=== PATIENT | male | born 1935 | race Caucasian/White ===

== ENCOUNTER 2017-02-12 19:56 | Observation (INO) | payer OTHER, BC ==
[~2017-02-12] VITALS: Ht 182.9 cm; Wt 83.3 kg
[~2017-02-12 19:56] MED LIST: CMD/25 PO; CYAN1LOZ; GARL705C PO; MULTTAB58 PO; OMEG10007 PO; PROP1TAB PO; PYRI50TA77 PO; SIMV20TA2 PO; notes PO
[2017-02-12 20:32] LABS: BASO % 0.1 %; BASO ABS # 0.02 K/uL (0-0.2); COMPLETE YES; EOS % 1.1 %; HEMATOCRIT 42.8 % (42-52); IG% 0.2 %; LYMPH % 8.3 %; LYMPH ABS # 1.14 K/uL (1.2-3.4); MEAN CORPUSCULAR HEMOGLOBIN 33.6 pg (25-34); MEAN CORPUSCULAR HGB CONC 33.6 g/dl (32-36); MEAN PLATELET VOLUME 10.7 fL (7.4-10.4); MONO % 8.6 %; NEUT % 81.7 %; PLATELET COUNT 153 K/uL (130-400); RED BLOOD COUNT 4.28 M/uL (4.7-6.1)
[2017-02-12 20:52] LABS: ALT/SGPT 17 U/L (12-78); AST/SGOT 13 U/L (15-37); BLOOD UREA NITROGEN 19 mg/dl (7-18); BUN/CREATININE RATIO 16.2 (10-20); CALCIUM 8.9 mg/dl (8.5-10.1); CARBON DIOXIDE 29 mmol/L (21-32); CHLORIDE 104 mmol/L (98-107); GLUCOSE 98 mg/dl (70-99); POTASSIUM 4.5 mmol/L (3.5-5.1); SODIUM 137 mmol/L (136-145)
[2017-02-12 20:55] LABS: ALB/GLOB RATIO 1.1 (0.9-2); ALKALINE PHOSPHATASE 57 U/L (45-117)
--- NOTE | 2017-02-12 21:23 | EMERGENCY ROOM VISIT NOTE ---
History Report prepared by [place]: Sal Ross Under the Supervision of: Dr. Femi Davila M.D. First contact with patient: 21:11 Chief Complaint: ABDOMINAL PAIN Stated Complaint: STOMACH DISCOMFORT, FLU-LIKE, FEVER (101) Nursing Triage Summary: patient c/o upper abdominal discomfort since yesterday described as tenderness. patient states he was seen today at [facility] and was told to come to ED. History of Present Illness The patient is an 82 year old male with a heart attack history who presents to the Emergency Room with complaints of persistent abdominal pain that started yesterday. He says that he was seen at [facility] a couple hours ago, and had an x-ray done, with concern for questionable free air. The patient was then sent here for further evaluation. He says that his abdominal pain "feels like a brick". The patient's adds that the patient had a fever of 101 this morning. The patient denies any nausea, vomiting, chest pain, shortness of breath, or hematochezia. The patient is on baby aspirin, but no other blood thinners. Source of History: patient, spouse/significant other Onset: Yesterday evening Position: abdomen Symptom Intensity: feels like a brick Timing: other (persistent) Associated Symptoms: + fevers, No chest pain, No SOB, No nausea, No vomiting , No hematochezia Note: No other associated symptoms noted. Review of Systems See HPI for pertinent positives & negatives. A total of 10 systems reviewed and were otherwise negative. Past Medical & Surgical Medical Problems: (1) Calculus of kidney and ureter (2) Essential tremor (3) History of cataract extraction (4) History of malignant basal cell neoplasm of skin (5) History of squamous cell carcinoma of skin (6) History TIA's (7) Status post hand surgery (8) Stomach ulcer Old medical records were reviewed. Nurse's notes were reviewed and I agree with. Family History Family history omitted secondary to patient's advanced age. Social History Smoking Status: Never Smoker Marital Status: Housing Status: lives with significant other Occupation Status: retired Current/Historical Medications Scheduled Aspirin (Aspirin Ec), 81 MG PO DAILY Atorvastatin (Lipitor), 40 MG PO DAILY Coenzyme Q10 (Ubidecarenone) (Coq-10), 100 MG PO DAILY Epinephrine (Epipen), 0.3 MG IM UD Fish Oil ([place]-3), 1,000 MG PO DAILY Multiple Vitamin (Multivitamin), 1 TAB PO DAILY Propranolol La (Inderal La), 60 MG PO DAILY Pyridoxine Hcl (Vitamin B 6), 0.5 TAB PO BID Allergies Coded Allergies: Bee Venom (Verified Allergy, Severe, ANAPHYLAXIS, 02/12/17) Gabapentin (Verified Allergy, Intermediate, DIZZY, UNSTEADY, 02/12/17) Codeine (Verified Allergy, Unknown, ANAPHYLAXIS, 02/12/17) Clindamycin (Verified Adverse Reaction, Intermediate, BLOOD IN STOOL, 02/12) Uncoded Allergies: LISIN (Adverse Reaction, Intermediate, COUGH, 02/12/17) Physical Exam Vital Signs Date Time Temp Pulse Resp B/P (MAP) Pulse Ox O2 Delivery O2 Flow Rate FiO2 02/13/17 00:30 60 20 112/60 97 Room Air 02/12/17 23:46 67 20 106/52 97 Room Air 02/12/17 23:07 66 02/12/17 22:05 64 20 113/55 95 Room Air 02/12/17 22:04 113/55 02/12/17 21:26 66 22 93 02/12/17 20:56 65 21 95 02/12/17 20:19 107/59 02/12/17 20:04 37.4 62 20 119/59 98 Room Air Physical Exam General: Well developed well nourished non ill appearing older male in no acute distress, breathing comfortably on room air. Normal speech HEENT: Normal cephalic atraumatic. Pupils are equal round and reactive to light. Extraocular movements are intact. Oropharynx is pink with moist mucous membranes and no lesions at present. No swelling of the mouth lips or tongue. Neck: Supple with a midline trachea. No meningeal signs or stiffness, no JVD or bruits. No Stridor. Chest: Clear to auscultation bilaterally. No wheezes or rhonchi. No increased work of breathing. Heart: regular rate and rhythm. Abdomen: Mild tenderness in epigastric area, he is also tender moderately on the right side of the abdomen and midabdomen. No peritonitis. Soft, nondistended without rebound guarding or rigidity. Extremities: No cyanosis clubbing or edema. No calf tenderness or assymetry Spine/Back. Non tender to palpation. No CVA tenderness Skin: Good turgor without rashes. Neurologic exam: Cranial nerves two through 12 are intact. Motor and sensation are intact and symmetrical throughout. Medical Decision & Procedures ER Provider Diagnostic Interpretation: Radiology results as stated below per my review and radiologist interpretation: CHEST ONE VIEW PORTABLE CLINICAL HISTORY: Chest pain. Fever. COMPARISON STUDY: Chest radiograph January 18, 2013. FINDINGS: There are median sternotomy wires and clips from bypass grafting. Cardiomediastinal silhouette is stable. There is no evidence of pulmonary edema. No consolidation is identified to suggest pneumonia. IMPRESSION: No acute cardiopulmonary findings. Electronically signed by: Brenton Avila M.D. 02/12/2017 10:19 PM Dictated Date/Time: 02/12/2017 10:[address] OF THE ABDOMEN AND PELVIS WITHOUT CONTRAST CLINICAL HISTORY: Abdominal pain. Fever. COMPARISON STUDY: No previous studies for comparison. TECHNIQUE: Axial images of the abdomen and pelvis were obtained without IV contrast. Images were reviewed in the axial, sagittal, and coronal planes. A dose lowering technique was utilized adhering to the principles of ALARA. FINDINGS: A 2.3 cm segment 4 hepatic lesion is suboptimally assessed on this unenhanced exam but measures water attenuation likely reflects a cyst. A 3.5 cm water attenuation lesion arising from the upper pole of the left kidney is suboptimally assessed on this unenhanced exam but measures water attenuation likely reflects a cyst. There are bilateral parapelvic cysts. The spleen, adrenal glands and pancreas are unremarkable on this unenhanced examination. There is no evidence for a bowel obstruction. The appendiceal tip is dilated, measuring 1 cm. There is moderate periappendiceal infiltration. A few appendicoliths are present. There is no free air or abscess. There is wall thickening of the base of the cecum. The prostate is moderately enlarged. There is no lymphadenopathy. There are no suspicious osseous lesions. IMPRESSION: Findings consistent with acute appendicitis. Moderate periappendiceal infiltration and several appendicoliths. No free air or abscess. Moderate wall thickening of the base of the cecum is likely related to acute appendicitis. A mucosal lesion is considered less likely although correlation at time of surgery is recommended. Electronically signed by: Brenton Avial M.D. 02/12/2017 10:32 PM Dictated Date/Time: 02/12/2017 10:24 PM Laboratory Results 02/12/17 20:26 Red Blood Count 4.28, Mean Corpuscular Volume 100.0, Mean Corpuscular Hemoglobin 33.6, Mean Corpuscular Hemoglobin Concent 33.6, Mean Platelet Volume 10.7, Neutrophils (%) (Auto) 81.7, Lymphocytes (%) (Auto) 8.3, Monocytes (%) ( Auto) 8.6, Eosinophils (%) (Auto) 1.1, Basophils (%) (Auto) 0.1, Neutrophils # ( Auto) 11.27, Lymphocytes # (Auto) 1.14, Monocytes # (Auto) 1.19, Eosinophils # ( Auto) 0.15, Basophils # (Auto) 0.02 02/12/17 20:26 Test 02/12/17 20:26 02/12/17 22:00 White Blood Count 13.80 K/uL (4.8-10.8) Red Blood Count 4.28 M/uL (4.7-6.1) Hemoglobin 14.4 g/dL (14.0-18.0) Hematocrit 42.8 % (42-52) Mean Corpuscular Volume 100.0 fL (80-100) Mean Corpuscular Hemoglobin 33.6 pg (25-34) Mean Corpuscular Hemoglobin Concent 33.6 g/dl (32-36) Platelet Count 153 K/uL (130-400) Mean Platelet Volume 10.7 fL (7.4-10.4) Neutrophils (%) (Auto) 81.7 % Lymphocytes (%) (Auto) 8.3 % Monocytes (%) (Auto) 8.6 % Eosinophils (%) (Auto) 1.1 % Basophils (%) (Auto) 0.1 % Neutrophils # (Auto) 11.27 K/uL (1.4-6.5) Lymphocytes # (Auto) 1.14 K/uL (1.2-3.4) Monocytes # (Auto) 1.19 K/uL (0.11-0.59) Eosinophils # (Auto) 0.15 K/uL (0-0.5) Basophils # (Auto) 0.02 K/uL (0-0.2) RDW Standard Deviation 45.8 fL (36.4-46.3) RDW Coefficient of Variation 12.7 % (11.5-14.5) Immature Granulocyte % (Auto) 0.2 % Immature Granulocyte # (Auto) 0.03 K/uL (0.00-0.02) Anion Gap 4.0 mmol/L (3-11) Est Creatinine Clear Calc Drug Dose 50.3 ml/min Estimated GFR () 64.0 Estimated GFR (Non- 55.2 BUN/Creatinine Ratio 16.2 (10-20) Calcium Level 8.9 mg/dl (8.5-10.1) Total Bilirubin 0.8 mg/dl (0.2-1) Aspartate Amino Transf (AST/SGOT) 13 U/L (15-37) Alanine Aminotransferase (ALT/SGPT) 17 U/L (12-78) Alkaline Phosphatase 57 U/L (45-117) Troponin I < 0.015 ng/ml (0-0.045) Total Protein 7.0 gm/dl (6.4-8.2) Albumin 3.6 gm/dl (3.4-5.0) Globulin 3.4 gm/dl (2.5-4.0) Albumin/Globulin Ratio 1.1 (0.9-2) Lipase 87 U/L (73-393) Urine Color YELLOW Urine Appearance CLEAR (CLEAR) Urine pH 6.0 (4.5-7.5) Urine Specific [place] 1.016 (1.000-1.030) Urine Protein NEG (NEG) Urine Glucose (UA) NEG (NEG) Urine Ketones 1+ (NEG) Urine Occult Blood NEG (NEG) Urine Nitrite NEG (NEG) Urine Bilirubin NEG (NEG) Urine Urobilinogen NEG (NEG) Urine Leukocyte Esterase NEG (NEG) Laboratory studies as stated above per my review. Medications Administered Medications (Trade) Dose Ordered Sig/Kade Route Start Time Stop Time Status Last Admin Dose Admin Sodium Chloride 250 ml @ 999 mls/hr Q16M STAT IV 02/12/17 21:27 02/12/17 21:42 DC 02/12/17 22:08 999 MLS/HR Sodium Chloride 1,000 ml @ 100 mls/hr Q10H STAT IV 02/12/17 21:27 02/13/17 07:26 02/12/17 22:08 100 MLS/HR Cefoxitin Sodium (Mefoxin 2000mg/ 60 ml D5W) 2,000 mg NOW STAT IV 02/12/17 23:46 02/12/17 23:47 DC 02/12/17 23:46 2,000 MG ECG Indication: abdominal pain Rate (beats per minute): 63 Rhythm: normal sinus Findings: Q waves (old inferior), RBBB Comparison ECG Date: compared to January 18 2013, RBBB now present ED Course 2117: Past medical records reviewed. The patient was evaluated in room C4, and a complete history and physical examination were performed. 2126: Ordered NSS 1000 ml @ 100 mls/hr IV, NSS 250 ml @ 999 mls/hr IV. 2229: I reevaluated the patient and he appears comfortable. 2334: I reevaluated the patient and he is resting. The patient verbally expressed understanding and agreement of the treatment plan. The patient will be brought to the operating room. 4: I discussed the patient with Dr. Chilo Gonzalez general surgery - she will take the patient to the operating room. 2346: Ordered Mefoxin 2000 mg/60 ml D5W 2000 mg IV. Medical Decision Differentials include, but are not limited to; free air, infection, colitis, peptic ulcer disease, viral illness, electrolyte or metabolic abnormality. This patient comes in as described above. He is benign fever or abdominal pain since yesterday. He was seen at the urgent care center and they thought he could have free air and sent him over here. He has tenderness epigastric area in the right side of the abdomen but no definite peritonitis. A chest x-ray was obtained and shows no free air or acute abnormality. IV access established was kept nothing by mouth and hydrated with IV normal saline. He appears very comfortable. I did CAT scan of his abdomen and there are findings are likely consistent with a acute appendicitis. In light of this, I did consult Dr. Woo the on-call surgeon. The patient also has an elevated white count. She is going to take him to the operating room. I did order Mefoxin 2 g IV. She will see him and taken to the operating room for an appendectomy.- Medication Reconcilliation Current Medication List: was personally reviewed by me Blood Pressure Screening Patient's blood pressure: Normal blood pressure Consults Time Called: 2339 Consulting Physician: Dr. Chilo Gonzalez general surgery Returned Call: [phone] I discussed the patient with Dr. Chilo Gonzalez general surgery - she will take the patient to the operating room. Impression Primary Impression: Acute appendicitis Additional Impression: Right sided abdominal pain Scribe Attestation The scribe's documentation has been prepared under my direction and personally reviewed by me in its entirety. I confirm that the note above accurately reflects all work, treatment, procedures, and medical decision making performed by me. Departure Information Dispostion Being Evaluated By Hospitalist (to operating room) Referrals Deon Spann MD (PCP) Patient Instructions My [facility] Problem Qualifiers Primary Impression: Acute appendicitis Acute appendicitis type: unspecified acute appendicitis type Qualified Codes : K35.80 - Unspecified acute appendicitis
[2017-02-12] MEDS ORDERED: SODIUM CHLORIDE 0.9% 1000ML 250 ML IV STA (21:27)
[2017-02-12] MEDS ORDERED: SODIUM CHLORIDE 0.9% 1000ML 1,000 ML IV STA (21:27)
[2017-02-12] MEDS ORDERED: EPP3/2 IM (21:39)
[2017-02-12] MEDS ORDERED: PROP60CA5 PO (21:39)
[2017-02-12] MEDS ORDERED: COEN100C11 PO (21:39)
[2017-02-12] MEDS ORDERED: ATOR-24 PO (21:39)
[2017-02-12] MEDS ORDERED: ASPI81TA28 PO (21:39)
--- NOTE | 2017-02-12 22:20 | DIAGNOSTIC IMAGING REPORT ---
CHEST ONE VIEW PORTABLE CLINICAL HISTORY: Chest pain. Fever. COMPARISON STUDY: Chest radiograph January 18, 2013. FINDINGS: There are median sternotomy wires and clips from bypass grafting. Cardiomediastinal silhouette is stable. There is no evidence of pulmonary edema. No consolidation is identified to suggest pneumonia. IMPRESSION: No acute cardiopulmonary findings. Electronically signed by: Brenton Avila M.D. 02/12/2017 10:19 PM Dictated Date/Time: 02/12/2017 10:18 PM
--- NOTE | 2017-02-12 22:33 | DIAGNOSTIC IMAGING REPORT ---
CT OF THE ABDOMEN AND PELVIS WITHOUT CONTRAST CLINICAL HISTORY: Abdominal pain. Fever. COMPARISON STUDY: No previous studies for comparison. TECHNIQUE: Axial images of the abdomen and pelvis were obtained without IV contrast. Images were reviewed in the axial, sagittal, and coronal planes. A dose lowering technique was utilized adhering to the principles of ALARA. FINDINGS: A 2.3 cm segment 4 hepatic lesion is suboptimally assessed on this unenhanced exam but measures water attenuation likely reflects a cyst. A 3.5 cm water attenuation lesion arising from the upper pole of the left kidney is suboptimally assessed on this unenhanced exam but measures water attenuation likely reflects a cyst. There are bilateral parapelvic cysts. The spleen, adrenal glands and pancreas are unremarkable on this unenhanced examination. There is no evidence for a bowel obstruction. The appendiceal tip is dilated, measuring 1 cm. There is moderate periappendiceal infiltration. A few appendicoliths are present. There is no free air or abscess. There is wall thickening of the base of the cecum. The prostate is moderately enlarged. There is no lymphadenopathy. There are no suspicious osseous lesions. IMPRESSION: Findings consistent with acute appendicitis. Moderate periappendiceal infiltration and several appendicoliths. No free air or abscess. Moderate wall thickening of the base of the cecum is likely related to acute appendicitis. A mucosal lesion is considered less likely although correlation at time of surgery is recommended. Electronically signed by: Brenton Avila M.D. 02/12/2017 10:32 PM Dictated Date/Time: 02/12/2017 10:24 PM
[2017-02-12 22:34] LABS: URINE APPEARANCE CLEAR (CLEAR); URINE BILIRUBIN NEG (NEG); URINE COLOR YELLOW; URINE NITRITE NEG (NEG); URINE SPECIFIC GRAVITY 1.016 (1.000-1.030); UROBILINOGEN NEG (NEG); ZZUR CULT IF INDIC CLEAN CATCH NO
[2017-02-12 22:42] LABS: MANUAL MICROSCOPIC REQUIRED? NO; REVIEW REQ? NO
[2017-02-12] MEDS ORDERED: CEFOXITIN 2000MG/60 ML D5W IV STA (23:46)
[2017-02-13] VITALS (13 sets, daily range): BP systolic 100–136; BP diastolic 45–84; PULSE 58–158; TEMP 36.3–37.4; O2SAT 91–98; Ht 182.9 cm; Wt 83.3 kg
[2017-02-13] MEDS ORDERED: BUPIVACAINE 0.5 % 5 MG/1 ML MPF 30ML VIAL ONE (00:25)
[2017-02-13] MEDS ORDERED: ROCURONIUM BROMIDE 10 MG/ML 5 ML VIAL ONE (00:31)
[2017-02-13] MEDS ORDERED: PROPOFOL IV EMULSION 10 MG/ML 20 ML VIAL IV ONE (00:31)
[2017-02-13] MEDS ORDERED: SUCCINYLCHOLINE CHLORIDE 20 MG/ML 10 ML VIAL IV ONE (00:31)
[2017-02-13] MEDS ORDERED: ONDANSETRON INJ 2 MG/ML 2 ML VIAL ONE (00:32)
[2017-02-13] MEDS ORDERED: FENTANYL CITRATE INJ 50 MCG/1 ML 2 ML VIAL ONE (00:32)
[2017-02-13] MEDS ORDERED: LIDOCAINE HCL 2% 2 ML VIAL (20MG/ML) ONE (00:32)
--- NOTE | 2017-02-13 00:35 | Pre-Operative Consultation ---
History General Date of Service: Feb 13, 2017. Stated Complaint: diffuse abdominal pain HPI HPI: The patient is a 82 year old male being seen at the request of Dr. Davila for acute appendicitis. He presents to the ER complaining of abdominal pain of 1 days duration. Generalized throughout his abdomen, constant, achy, 5/10 in severity, worse with movement, better if he lays still with his legs bent. Fever to 101 earlier today. No nausea or vomiting. No change in bowel habits. No similar symptoms in the past. No localization or radiation to the right side. No prior colonoscopy but no family history of colon cancer. Historian: patient, spouse Anticipated Procedure: laparoscopic appendectomy Procedure Urgency: Emergency Risk Assessment Pre-Op Conditions: + cerebrovascular disease (h/o TIAs in the past), + other (h /o CAD s/p CABG) Daily beta doug use?: Yes Beta Doug Details Indication Beta Doug use: coronary heart disease, tremor Problem List Medical Problems: (1) Acute appendicitis Status: Acute (2) Right sided abdominal pain Status: Acute Medical & Surgical History Past Medical History: coronary artery disease, other (h/o TIA, tremor) Past Surgical History: coronary bypass surgery (3-4 yrs ago, followed by Dr Josue), other (hand surgery, skin cancer removals) Family History Family History: no pertinent family hx Social History Hx Tobacco Use In Past Year?: No Smoking Status: Never Smoker Marital status: Housing status: lives with family Occupation status: retired Immunizations Have You Had Influenza Vaccine: Yes Have You Had Tetanus Vaccine: Unknown History of Pneumococcal: Yes Date of Pneumococcal Vaccine: Mar 04, 2013 History Hepatitis B Vaccine: Unknown Allergies Allergies: Coded Allergies: Bee Venom (Verified Allergy, Severe, ANAPHYLAXIS, 02/12/17) Gabapentin (Verified Allergy, Intermediate, DIZZY, UNSTEADY, 02/12/17) Codeine (Verified Allergy, Unknown, ANAPHYLAXIS, 02/12/17) Clindamycin (Verified Adverse Reaction, Intermediate, BLOOD IN STOOL, 02/12) Uncoded Allergies: LISIN (Adverse Reaction, Intermediate, COUGH, 02/12/17) Medications Current Inpatient Medications Current Inpatient Medications Medications (Trade) Dose Ordered Sig/Kade Route Start Time Stop Time Status Last Admin Dose Admin Sodium Chloride 1,000 ml @ 100 mls/hr Q10H STAT IV 02/12/17 21:27 02/13/17 07:26 02/12/17 22:08 100 MLS/HR Review of Systems Review of Systems Constitutional: fever Eyes: reports: no symptoms ENT: reports: no symptoms reported Cardiovascular: reports: no symptoms reported, other (able to walk 2 hrs without problems since bypass grafting) Respiratory: reports: no symptoms reported Gastrointestinal: see HPI Genitourinary - Male: reports: no symptoms Musculoskeletal: no symptoms reported Integumentary: no symptoms reported Neurologic: reports: no symptoms Psychiatric: reports: no symptoms Endocrine: no symptoms Hematologic / Lymphatic: other (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) Allergic / Immunologic: no symptoms Physical Exam Physical Exam General Appearance: + WD/WN, No distress Ears, Nose, Throat: + normal ENT inspection Neck: No abnormal inspection, No limited range of motion Respiratory: No accessory muscle use, No abnormal breath sounds, No decreased breath sounds, No respiratory distress Cardiovascular: + systolic murmur, No abnormal peripheral pulse, No JVD, No abnormal rate, No edema Abdomen: + tenderness (right mid abdomen), No abnormal bowel sounds, No distension, No hernia, No organomegaly, No guarding Extremities: No edema, No slow capillary refill Neurologic/Psychiatric: + other (tremor), No abnormal broomcorn thresher II-XII, No decreased LOC Skin Characteristics: No abnormal color, No cyanosis Diagnostics Labs Labs Results Past 24 Hours Test 02/12/17 20:26 02/12/17 22:00 Range/Units White Blood Count 13.80 4.8-10.8 K/uL Red Blood Count 4.28 4.7-6.1 M/uL Hemoglobin 14.4 14.0-18.0 g/dL Hematocrit 42.8 42-52 % Mean Corpuscular Volume 100.0 80-100 fL Mean Corpuscular Hemoglobin 33.6 25-34 pg Mean Corpuscular Hemoglobin Concent 33.6 32-36 g/dl Platelet Count 153 130-400 K/uL Mean Platelet Volume 10.7 7.4-10.4 fL Neutrophils (%) (Auto) 81.7 % Lymphocytes (%) (Auto) 8.3 % Monocytes (%) (Auto) 8.6 % Eosinophils (%) (Auto) 1.1 % Basophils (%) (Auto) 0.1 % Neutrophils # (Auto) 11.27 1.4-6.5 K/uL Lymphocytes # (Auto) 1.14 1.2-3.4 K/uL Monocytes # (Auto) 1.19 0.11-0.59 K/uL Eosinophils # (Auto) 0.15 0-0.5 K/uL Basophils # (Auto) 0.02 0-0.2 K/uL RDW Standard Deviation 45.8 36.4-46.3 fL RDW Coefficient of Variation 12.7 11.5-14.5 % Immature Granulocyte % (Auto) 0.2 % Immature Granulocyte # (Auto) 0.03 0.00-0.02 K/uL Sodium Level 137 136-145 mmol/L Potassium Level 4.5 3.5-5.1 mmol/L Chloride Level 104 98-107 mmol/L Carbon Dioxide Level 29 21-32 mmol/L Anion Gap 4.0 3-11 mmol/L Blood Urea Nitrogen 19 7-18 mg/dl Creatinine 1.20 0.60-1.40 mg/dl Est Creatinine Clear Calc Drug Dose 50.3 ml/min Estimated GFR () 64.0 Estimated GFR (Non- 55.2 BUN/Creatinine Ratio 16.2 10-20 Random Glucose 98 70-99 mg/dl Calcium Level 8.9 8.5-10.1 mg/dl Total Bilirubin 0.8 0.2-1 mg/dl Aspartate Amino Transf (AST/SGOT) 13 15-37 U/L Alanine Aminotransferase (ALT/SGPT) 17 12-78 U/L Alkaline Phosphatase 57 45-117 U/L Troponin I < 0.015 0-0.045 ng/ml Total Protein 7.0 6.4-8.2 gm/dl Albumin 3.6 3.4-5.0 gm/dl Globulin 3.4 2.5-4.0 gm/dl Albumin/Globulin Ratio 1.1 0.9-2 Lipase 87 73-393 U/L Urine Color YELLOW Urine Appearance CLEAR CLEAR Urine pH 6.0 4.5-7.5 Urine Specific [place] 1.016 1.000-1.030 Urine Protein NEG NEG Urine Glucose (UA) NEG NEG Urine Ketones 1+ NEG Urine Occult Blood NEG NEG Urine Nitrite NEG NEG Urine Bilirubin NEG NEG Urine Urobilinogen NEG NEG Urine Leukocyte Esterase NEG NEG Lab Interpretation Lab Interpretation: labs were reviewed Diagnostic Radiology Diagnostic Radiology CT scan shows dilated appendix with appendicoliths and periappendiceal inflammation extending to base of cecum Impression Assessment and Plan Assessment and Plan 82 yr old man with acute appendicitis. Discussed laparoscopic appendectomy with risks of bleeding, infection, postop abscess or ileus. Also discussed the potential need for a larger procedure if the base of the cecum is involved or malignancy seen/ suspected intraoperatively. Explained ileocectomy with longer hospital stay, 4-6 wk recovery, possible loose stools due to loss of the ileocecal valve. All questions answered. Will go to OR tonight. Consent signed.
[2017-02-13] MEDS ORDERED: ATROPINE SULFATE 0.1 MG/ML 5ML SYR IV PRN (00:45)
[2017-02-13] MEDS ORDERED: HYDROmorphone INJ 2 MG/ML SYR/VIAL IV PRN (00:45)
[2017-02-13] MEDS ORDERED: ONDANSETRON INJ 2 MG/ML 2 ML VIAL IV PRN ×2 (00:45→02:30)
[2017-02-13] MEDS ORDERED: EpHEDrine SULFATE INJ 50 MG/ML AMP IV PRN (00:45)
[2017-02-13] MEDS ORDERED: PHENYLEPHRINE 100MCG/ML 5ML SYR IV PRN (00:45)
[2017-02-13] MEDS ORDERED: GLYCOPYRROLATE INJ 0.2 MG/ML VIAL ONE (01:52)
[2017-02-13] MEDS ORDERED: NEOSTIGMINE METHYLSULFATE 5 MG/5 ML SYR ONE (01:52)
--- NOTE | 2017-02-13 02:14 | [facility] Post Operative Brief Note ---
Immediate Operative Summary Operative Date Feb 13, 2017. Pre-Operative Diagnosis Acute appendicitis Post-Operative Diagnosis Same as preoperative diagnosis Procedure(s) Performed Laparoscopic Appendectomy Surgeon Dr. Malorie Woo [employer] Adviser Surgeon(s) None Estimated Blood Loss 5 mL Findings appendix curled on itself and adherent to cecum. Base of appendix clear of inflammation Specimens Permanent specimens A: Appendix Drains none Anesthesia GET Complication(s) None Disposition Recovery Room / PACU
--- NOTE | 2017-02-13 02:20 | [facility] Operative Report ---
Operative Report Operative Date Feb 13, 2017. Pre-Operative Diagnosis Acute appendicitis Post-Operative Diagnosis Same as preoperative diagnosis Procedure(s) Performed Laparoscopic Appendectomy Surgeon Dr. Malorie Woo Supervisor [employer] Surgeon(s) None Estimated Blood Loss 5 mL Findings base of appendix clear of inflammation, appendix curled on itself and adherent to cecum Specimens Permanent specimens A: Appendix Drains none Anesthesia GET Complication(s) None Disposition Recovery Room / PACU Indications 82 yr old man who presented with generalized abdominal pain, fever and CT scan findings c/w acute appendicitis. Consented for laparoscopic appendectomy. Description of Procedure The patient received cefoxitin preoperatively. After the induction of GET, he was positioned with his left arm tucked. He had placement of SCD's. His abdomen was clipped and then steriley prepped and draped. He was positioned in trendelenburg. A supraumblilical incision was made and a veress needle placed into the peritoneal cavity. This was tested with the saline drop test. Initial pressure was 1 mmHg and this was taken to 15 mmHg. A 12 mm trocar was placed. Two 5 mm trocars were placed under direct vision in the left lower quadrant and midline pubic area. The appendix was seen adherent to the cecum with significant inflammatory peel. This was dissected free and the base of the appendix was noted to be free of inflammation. A window was created here and the base of the appendix divided off of the cecum with the purple load stapler. The thickened appendiceal mesentery was taken with two sequential loads of the 45 mm wilhelm stapler. The appendix was placed in an endobag and removed through the umbilical incision. The abdomen was irrigated and suctioned clear. Hemostasis was noted to be present. The trocars were removed and pneumoperitoneum released. The fascia of the umbilical incision was closed with interrupted 3-0 vicryl suture. The skin was closed with subcuticular 4-0 vicryl suture. 30 cc of 0.5% marcaine had been used for local anesthesia. Steri strips and sterile dressings were applied. He was awakened and taken to recovery in stable condition. I attest to the content of the Intraoperative Record and any orders documented therein. Any exceptions are noted below.
--- NOTE | 2017-02-13 02:23 | Anesthesiology Progress Note ---
Anesthesia Post Op Note Date & Time Feb 13, 2017 at 02:22 Vital Signs Pain Intensity: 4.0 Vital Signs Past 12 Hours Date Time Temp Pulse Resp B/P (MAP) Pulse Ox O2 Delivery O2 Flow Rate FiO2 02/13/17 02:15 36.4 64 20 147/66 (82) 99 Oxymask 10 02/13/17 00:30 60 20 112/60 97 Room Air 02/12/17 23:46 67 20 106/52 97 Room Air 02/12/17 23:07 66 02/12/17 22:05 64 20 113/55 95 Room Air 02/12/17 22:04 113/55 02/12/17 21:26 66 22 93 02/12/17 20:56 65 21 95 02/12/17 20:19 107/59 02/12/17 20:04 37.4 62 20 119/59 98 Room Air Notes Mental Status: alert / awake / arousable, participated in evaluation Pt Amnestic to Procedure: Yes Nausea / Vomiting: adequately controlled Pain: adequately controlled Airway Patency, RR, SpO2: stable & adequate BP & HR: stable & adequate Hydration State: stable & adequate Anesthetic Complications: no major complications apparent
[2017-02-13] MEDS ORDERED: OXYC-57 PO (02:24)
[2017-02-13] MEDS ORDERED: AMOX875T PO (02:24)
--- NOTE | 2017-02-13 02:26 | Discharge Instructions ---
Discharge Instructions Date of Service Feb 13, 2017. Admission Reason for Admission: Stomach Discomfort, Flu-Like, Fever (101) Discharge Discharge Diagnosis / Problem: ACUTE APPENDICITIS Discharge Goals Goal(s): Decrease discomfort Activity Recommendations Activity Limitations: resume your previous activity (walking/ stairs OK) Exercise/Sports Limitations: until after follow-up appointment (2 wks) May Resume Sexual Activity: after two weeks Shower/Bathe: tomorrow (may shower in 24 hrs, remove outer gauze dressings first) Driving or Machine Use: 3-5 days or until off narcotics . Current Hospital Diet Patient's current hospital diet: Clear Liquid Diet Discharge Diet Recommended Diet: Regular Diet (soups/ liquids if bloating persists) Procedures Procedures Performed: Laparoscopic Appendectomy Pending Studies Studies pending at discharge: no Medical Emergencies . Who to Call and When: Medical Emergencies: If at any time you feel your situation is an emergency, please call 911 immediately. . Non-Emergent Contact Non-Emergency issues call your: Surgeon ([phone] - call to make 2 wk postop appt) Call Non-Emergent contact if: temperature is above 101, your pain is not controlled, your pain is worsening, your pain is unusual for you, your pain is concerning you, wound has increased drainage, wound has increased redness, wound has increased pain . "Provider Documentation" section prepared by Malorie Woo. . VTE Core Measure Inpt VTE Proph given/why not?: SCD's [place] Drug Monitoring Program Search Results: patient reviewed within database
[2017-02-13] MEDS ORDERED: MoRPHine SULFATE 2 MG/ML CARP IV PRN ×3 (02:30)
[2017-02-13] MEDS ORDERED: EPINEPHRINE ADULT AUTO-INJECT 0.3 MG SYR IM PRN (02:30)
[2017-02-13] MEDS ORDERED: OXYCODONE/ACETAMINOPHEN 5-325 TAB PO PRN ×2 (02:30)
[2017-02-13] MEDS ORDERED: ACETAMINOPHEN 325 MG TAB PO PRN (02:30)
[2017-02-13] MEDS ORDERED: IV FLUIDS COMPLETED PRN (03:30)
[2017-02-13] MEDS: LACTATED RINGER'S 1000ML 1,000 ML IV SCH ×2 (04:03→13:08)
[2017-02-13] MEDS: CEFOXITIN IV 2,000 MG in DEXTROSE 5% 50ML 50 ML IV SCH ×4 (05:58→23:18)
[2017-02-13] MEDS: ASPIRIN 81 MG ECTAB PO SCH (08:04)
[2017-02-13] MEDS: ATORVASTATIN 40 MG TAB PO SCH (08:04)
[2017-02-13] MEDS: MULTIVITAMIN TAB PO SCH (08:05)
[2017-02-13] MEDS: PYRIDOXINE HCL 50 MG TAB PO SCH ×2 (08:05→20:14)
[2017-02-13 08:49] LABS: HEMATOCRIT 41.7 % (42-52); MEAN CELL VOLUME 98.3 fL (80-100); MEAN CORPUSCULAR HEMOGLOBIN 33.7 pg (25-34); MEAN CORPUSCULAR HGB CONC 34.3 g/dl (32-36); MEAN PLATELET VOLUME 10.4 fL (7.4-10.4); PLATELET COUNT 123 K/uL (130-400); RED BLOOD COUNT 4.24 M/uL (4.7-6.1); WHITE BLOOD COUNT 13.16 K/uL (4.8-10.8)
[2017-02-13] MEDS ORDERED: PROPRANOLOL HCL 60 MG LA CAP PO SCH (09:00)
--- NOTE | 2017-02-13 09:20 | Medical Consult ---
Consultation Date of Consultation: Feb 13, 2017. Attending Physician: Malorie Woo MD Reason for Consultation: Elevated HR History of Present Illness 82 yo male with PMH of CAD s/p CABG, NSTEMI, Essential tremor, TIA, Dyslipidemia was brought to the ER for abdominal pain that started for about 1 day. He said the pain was generalized, constant achy, worsening with movement and grade 5/[address] abd/pelvis done that showed acute appendicitis. Pt had laparoscopic appendectomy performed yesterday by Dr. Woo. [facility] Hospitalist was consulted for elevated HR in the 150. Pt said that he was having tremors when his HR was elevated. He denies any chest pain, palpitation, dizziness and SOB. said that pt is very active. Startt EKG done and read as AFib with RVR. Now is HR is down to 80 and regular on telemonitor. He follows with Cardiology Dr. Josue. We will transfer him to telemetry. Past Medical/Surgical History Medical Problems: (1) Acute appendicitis Status: Acute (2) Right sided abdominal pain Status: Acute 3) Essential tremor 4) NSTEMI 5) Basal cell carcinoma 6) CAD s/p CABG 7) TIA 3 Social History Smoking Status: Never Smoker Alcohol Use: none Marital Status: Housing Status: lives with significant other Occupation Status: retired Allergies Coded Allergies: Bee Venom (Verified Allergy, Severe, ANAPHYLAXIS, 02/12/17) Gabapentin (Verified Allergy, Intermediate, DIZZY, UNSTEADY, 02/12/17) Codeine (Verified Allergy, Unknown, ANAPHYLAXIS, 02/12/17) Clindamycin (Verified Adverse Reaction, Intermediate, BLOOD IN STOOL, 02/12) Lisinopril (Verified Adverse Reaction, Intermediate, COUGH, 02/13/17) Current Inpatient Medications Current Inpatient Medications Medications (Trade) Dose Ordered Sig/Kade Route Start Time Stop Time Status Last Admin Dose Admin Lactated Ringer's 1,000 ml @ 100 mls/hr Q10H IV 02/13/17 02:20 03/15/17 02:19 02/13/17 04:03 100 MLS/HR Ondansetron HCl (Zofran Inj) 4 mg Q4H PRN IV 02/13/17 02:30 03/15/17 02:29 Acetaminophen (Tylenol Tab) 650 mg Q6H PRN PO 02/13/17 02:30 03/15/17 02:29 Morphine Sulfate (MoRPHine SULFATE INJ) 1 mg Q1H PRN IV 02/13/17 02:30 02/27/17 02:29 Oxycodone/ Acetaminophen (Percocet 5-325mg Tab) 1 tab Q4H PRN PO 02/13/17 02:30 02/27/17 02:29 Morphine Sulfate (MoRPHine SULFATE INJ) 2 mg Q1H PRN IV 02/13/17 02:30 02/27/17 02:29 Oxycodone/ Acetaminophen (Percocet 5-325mg Tab) 2 tab Q4H PRN PO 02/13/17 02:30 02/27/17 02:29 Morphine Sulfate (MoRPHine SULFATE INJ) 4 mg Q1H PRN IV 02/13/17 02:30 02/27/17 02:29 Cefoxitin Sodium 2000 mg/Dextrose 60 ml @ 100 mls/hr Q6H IV 02/13/17 06:00 02/14/17 05:59 02/13/17 05:58 100 MLS/HR Aspirin (Ecotrin Tab) 81 mg DAILY PO 02/13/17 09:00 03/15/17 08:59 02/13/17 08:04 81 MG Atorvastatin Calcium (Lipitor Tab) 40 mg DAILY PO 02/13/17 09:00 03/15/17 08:59 Epinephrine (Epipen) 0.3 mg UD PRN IM 02/13/17 02:30 03/15/17 02:29 Multivitamins (Multivitamin Tab) 1 tab DAILY PO 02/13/17 09:00 03/15/17 08:59 Propranolol HCl (Inderal [place]) 60 mg DAILY PO 02/13/17 09:00 03/15/17 08:59 02/13/17 08:04 60 MG Pyridoxine HCl (Vitamin B-6 Tab) 25 mg BID PO 02/13/17 09:00 03/15/17 08:59 Miscellaneous (Iv Fluids Completed) 1 ea PRN PRN N/A 02/13/17 03:30 02/13/18 03:29 Review of Systems Constitutional: No fever, No chills Eyes: No eye pain, No redness ENT: No hearing loss, No unusual epistaxis, No sore throat Respiratory: No cough, No sputum, No wheezing, No shortness of breath Cardiovascular: No chest pain, No claudication, No palpitations Abdomen: + pain, No nausea, No vomiting Musculoskeletal: No calf pain Genitourinary - Male: No hematuria, No dysuria Neurologic: No paralysis, No weakness Psychiatric: No substance abuse Endocrine: No fatigue Hematologic / Lymphatic: No night sweats Integumentary: No rash, No itch Physical Exam Date Time Temp Pulse Resp B/P (MAP) Pulse Ox O2 Delivery O2 Flow Rate FiO2 02/13/17 07:31 36.9 121 17 136/84 (101) 96 Nasal Cannula 2.0 02/13/17 06:00 36.5 65 16 111/66 (81) 98 Nasal Cannula 2.0 02/13/17 05:00 36.3 65 16 118/58 (78) 95 Nasal Cannula 2.0 02/13/17 04:03 36.6 69 15 122/63 (82) 95 Nasal Cannula 2.0 02/13/17 03:41 Nasal Cannula 2.0 02/13/17 03:30 36.8 58 16 112/61 (78) 93 Nasal Cannula 2.0 02/13/17 03:15 Ambu-Bag 2.0 02/13/17 03:15 92 Nasal Cannula 2.0 02/13/17 03:00 36.8 63 16 130/71 (90) 93 Nasal Cannula 2.0 02/13/17 02:45 36.7 60 20 118/58 95 Room Air 02/13/17 02:35 60 18 139/49 (93) 96 Room Air 02/13/17 02:25 63 20 152/79 100 Oxymask 5 02/13/17 02:15 36.4 64 20 147/66 (82) 99 Oxymask 10 02/13/17 00:30 60 20 112/60 97 Room Air 02/12/17 23:46 67 20 106/52 97 Room Air 02/12/17 23:07 66 02/12/17 22:05 64 20 113/55 95 Room Air 02/12/17 22:04 113/55 02/12/17 21:26 66 22 93 02/12/17 20:56 65 21 95 02/12/17 20:19 107/59 02/12/17 20:04 37.4 62 20 119/59 98 Room Air General Appearance: WD/WN, no apparent distress Head: normocephalic, atraumatic Eyes: PERRL, EOMI ENT: hearing grossly normal Neck: supple, no JVD Respiratory/Chest: no respiratory distress, no accessory muscle use Cardiovascular: regular rate, rhythm, no JVD Abdomen/GI: + tenderness Back: no CVA tenderness Extremities/Musculoskelatal: no calf tenderness, + pertinent finding (trace edema) Neurologic/Psych: no motor/sensory deficits, alert, oriented x 3 Skin: warm/dry, no rash Laboratory Results Last 24 Hours Test 02/12/17 20:26 02/12/17 22:00 02/13/17 08:15 02/13/17 08:22 White Blood Count 13.80 K/uL 13.16 K/uL Red Blood Count 4.28 M/uL 4.24 M/uL Hemoglobin 14.4 g/dL 14.3 g/dL Hematocrit 42.8 % 41.7 % Mean Corpuscular Volume 100.0 fL 98.3 fL Mean Corpuscular Hemoglobin 33.6 pg 33.7 pg Mean Corpuscular Hemoglobin Concent 33.6 g/dl 34.3 g/dl Platelet Count 153 K/uL 123 K/uL Mean Platelet Volume 10.7 fL 10.4 fL Neutrophils (%) (Auto) 81.7 % Lymphocytes (%) (Auto) 8.3 % Monocytes (%) (Auto) 8.6 % Eosinophils (%) (Auto) 1.1 % Basophils (%) (Auto) 0.1 % Neutrophils # (Auto) 11.27 K/uL Lymphocytes # (Auto) 1.14 K/uL Monocytes # (Auto) 1.19 K/uL Eosinophils # (Auto) 0.15 K/uL Basophils # (Auto) 0.02 K/uL RDW Standard Deviation 45.8 fL 46.1 fL RDW Coefficient of Variation 12.7 % 12.7 % Immature Granulocyte % (Auto) 0.2 % Immature Granulocyte # (Auto) 0.03 K/uL Sodium Level 137 mmol/L Potassium Level 4.5 mmol/L Chloride Level 104 mmol/L Carbon Dioxide Level 29 mmol/L Anion Gap 4.0 mmol/L Blood Urea Nitrogen 19 mg/dl Creatinine 1.20 mg/dl Est Creatinine Clear Calc Drug Dose 50.3 ml/min Estimated GFR () 64.0 Estimated GFR (Non- 55.2 BUN/Creatinine Ratio 16.2 Random Glucose 98 mg/dl Calcium Level 8.9 mg/dl Total Bilirubin 0.8 mg/dl Aspartate Amino Transf (AST/SGOT) 13 U/L Alanine Aminotransferase (ALT/SGPT) 17 U/L Alkaline Phosphatase 57 U/L Troponin I < 0.015 ng/ml Total Protein 7.0 gm/dl Albumin 3.6 gm/dl Globulin 3.4 gm/dl Albumin/Globulin Ratio 1.1 Lipase 87 U/L Urine Color YELLOW Urine Appearance CLEAR Urine pH 6.0 Urine Specific [place] 1.016 Urine Protein NEG Urine Glucose (UA) NEG Urine Ketones 1+ Urine Occult Blood NEG Urine Nitrite NEG Urine Bilirubin NEG Urine Urobilinogen NEG Urine Leukocyte Esterase NEG Creatine Kinase MB Ratio Assessment & Plan Acute Appendicitis S/P day # 1 Laparoscopic Appendectomy performed by dr. Woo No post- op complications Loss only 5ml blood incentive spirometry Pain control P. AFIB with RVR Possible related to recent surgery episode lasted about 30min HR rate was in the 150 Stat EKG done read as AFib with RVR (HR 156) Will get CBC, BMP, Mg and troponin Will transfer to Telemetry HR down to 80 and telemetry shows NSR now Asymptomatic Will get an Echo Cardiology consult Anticoagulant will defer to Cardiology CAD s/p CABG Denies any chest pain Continue aspirin, statin and propranolol Essential Tremor Continue propranolol and primidone Hyperlipidemia Continue Lipitor Hx TIA Left facial area seems asymmetry Pt said that he has been like that for about 30yrs Denies any neuro focal deficit Continue aspirin and statin Stable DVT px as per surgery SCD for now (can switch to heparin subq once bleeding stable)
--- NOTE | 2017-02-13 09:53 | Surgery Progress Note ---
Surgery Progress Note Date of Service Feb 13, 2017. Subjective + feeling well F/U S/P lap appy POD 7 hours pt is doing fine, No nausea, no vomiting, some incision pain, Objective Vital Signs: Date Time Temp Pulse Resp B/P (MAP) Pulse Ox O2 Delivery O2 Flow Rate FiO2 02/13/17 07:31 36.9 121 17 136/84 (101) 96 Nasal Cannula 2.0 02/13/17 06:00 36.5 65 16 111/66 (81) 98 Nasal Cannula 2.0 02/13/17 05:00 36.3 65 16 118/58 (78) 95 Nasal Cannula 2.0 02/13/17 04:03 36.6 69 15 122/63 (82) 95 Nasal Cannula 2.0 02/13/17 03:41 Nasal Cannula 2.0 02/13/17 03:30 36.8 58 16 112/61 (78) 93 Nasal Cannula 2.0 02/13/17 03:15 Ambu-Bag 2.0 02/13/17 03:15 92 Nasal Cannula 2.0 02/13/17 03:00 36.8 63 16 130/71 (90) 93 Nasal Cannula 2.0 02/13/17 02:45 36.7 60 20 118/58 95 Room Air 02/13/17 02:35 60 18 139/49 (93) 96 Room Air 02/13/17 02:25 63 20 152/79 100 Oxymask 5 02/13/17 02:15 36.4 64 20 147/66 (82) 99 Oxymask 10 02/13/17 00:30 60 20 112/60 97 Room Air 02/12/17 23:46 67 20 106/52 97 Room Air 02/12/17 23:07 66 02/12/17 22:05 64 20 113/55 95 Room Air 02/12/17 22:04 113/55 02/12/17 21:26 66 22 93 02/12/17 20:56 65 21 95 02/12/17 20:19 107/59 02/12/17 20:04 37.4 62 20 119/59 98 Room Air General Appearance: WD/WN, no apparent distress Head: normocephalic Neck: supple, no JVD Respiratory/Chest: chest non-tender, lungs clear Cardiovascular: regular rate, rhythm, no edema, no JVD Abdomen: normal bowel sounds, non tender, non distended, soft Incision(s): clean, dry, intact Extremities: normal range of motion, non-tender, normal inspection Laboratory Results: Results Past 24 Hours Test 02/12/17 20:26 02/12/17 22:00 02/13/17 08:15 02/13/17 08:22 Range/Units White Blood Count 13.80 13.16 4.8-10.8 K/uL Red Blood Count 4.28 4.24 4.7-6.1 M/uL Hemoglobin 14.4 14.3 14.0-18.0 g/dL Hematocrit 42.8 41.7 42-52 % Mean Corpuscular Volume 100.0 98.3 80-100 fL Mean Corpuscular Hemoglobin 33.6 33.7 25-34 pg Mean Corpuscular Hemoglobin Concent 33.6 34.3 32-36 g/dl Platelet Count 153 123 130-400 K/uL Mean Platelet Volume 10.7 10.4 7.4-10.4 fL Neutrophils (%) (Auto) 81.7 % Lymphocytes (%) (Auto) 8.3 % Monocytes (%) (Auto) 8.6 % Eosinophils (%) (Auto) 1.1 % Basophils (%) (Auto) 0.1 % Neutrophils # (Auto) 11.27 1.4-6.5 K/uL Lymphocytes # (Auto) 1.14 1.2-3.4 K/uL Monocytes # (Auto) 1.19 0.11-0.59 K/uL Eosinophils # (Auto) 0.15 0-0.5 K/uL Basophils # (Auto) 0.02 0-0.2 K/uL RDW Standard Deviation 45.8 46.1 36.4-46.3 fL RDW Coefficient of Variation 12.7 12.7 11.5-14.5 % Immature Granulocyte % (Auto) 0.2 % Immature Granulocyte # (Auto) 0.03 0.00-0.02 K/uL Sodium Level 137 136-145 mmol/L Potassium Level 4.5 3.5-5.1 mmol/L Chloride Level 104 98-107 mmol/L Carbon Dioxide Level 29 21-32 mmol/L Anion Gap 4.0 3-11 mmol/L Blood Urea Nitrogen 19 7-18 mg/dl Creatinine 1.20 0.60-1.40 mg/dl Est Creatinine Clear Calc Drug Dose 50.3 ml/min Estimated GFR () 64.0 Estimated GFR (Non- 55.2 BUN/Creatinine Ratio 16.2 10-20 Random Glucose 98 70-99 mg/dl Calcium Level 8.9 8.5-10.1 mg/dl Total Bilirubin 0.8 0.2-1 mg/dl Aspartate Amino Transf (AST/SGOT) 13 15-37 U/L Alanine Aminotransferase (ALT/SGPT) 17 12-78 U/L Alkaline Phosphatase 57 45-117 U/L Troponin I < 0.015 0.019 0-0.045 ng/ml Total Protein 7.0 6.4-8.2 gm/dl Albumin 3.6 3.4-5.0 gm/dl Globulin 3.4 2.5-4.0 gm/dl Albumin/Globulin Ratio 1.1 0.9-2 Lipase 87 73-393 U/L Urine Color YELLOW Urine Appearance CLEAR CLEAR Urine pH 6.0 4.5-7.5 Urine Specific [place] 1.016 1.000-1.030 Urine Protein NEG NEG Urine Glucose (UA) NEG NEG Urine Ketones 1+ NEG Urine Occult Blood NEG NEG Urine Nitrite NEG NEG Urine Bilirubin NEG NEG Urine Urobilinogen NEG NEG Urine Leukocyte Esterase NEG NEG Creatine Kinase MB Ratio 0-3.0 Creatine Kinase MB 1.4 0.5-3.6 ng/ml Assessment & Plan F/U S/P lap appy pt is doing fine, may D/C home tomorrow
[2017-02-13 10:50] LABS: BUN/CREATININE RATIO 12.5 (10-20); CALCIUM 8.6 mg/dl (8.5-10.1); CREATININE 1.1 mg/dl (0.60-1.40); POTASSIUM 4.1 mmol/L (3.5-5.1)
--- NOTE | 2017-02-13 11:53 | Cardiology Consultation ---
Cardiology Consultation Date of Consultation: Feb 13, 2017 Requesting Physician: Dr. Jay Attending Floor Mechanic: Dr. Pena (Yola Castellanos PA-C) History of Present Illness Patient is a 82 year old male who is known to [facility] Cardiology service and follows with Dr. Josue for history of CAD, inferior/posterior NSTEMI in 2012, leading to CABG x4 on 01/19/13 at [facility] (internal mammary to LAD, reverse saphenous vein graft from aorta to diagonal 2 to diagonal 1, reverse saphenous vein graft from aorta to posterior descending artery). He had post op afib, treated with beta alexander, converting to NSR and was on Coumadin for several months in the post op setting without recurrence. Last echo in 02/2013 demonstrated preserved LV function EF 56% and no significant valvular disease, mild left atrial enlargement. Other history includes chronic tremors for which he takes propranolol, hypertension an dyslipidemia. He also reports history of TIA > 10 years ago with mild slurred speech, lasting approx 30 minutes and resolving spontaneously. No prior history of CVA. He was admitted last night with acute appendicitis. Underwent appendectomy this AM. In the post op recovery area, he went into rapid afib RVR. He was unaware of palpitations. Asymptomatic. Afib episode lasted < 30 minutes. At time of consult, patient maintaining NSR. He is asymptomatic and feeling well. No significant abdominal pain. No chest pain or SOB. On evaluation it was questioned if left eye and mouth was drooping, however he says this is chronic and unchanged. (Yola Castellanos PA-C) Past Medical/Surgical History Problem List: Medical Problems: (1) Calculus of kidney and ureter (2) Dyslipidemia (3) Essential tremor (4) History of cataract extraction (5) History of malignant basal cell neoplasm of skin (6) History of squamous cell carcinoma of skin (7) History TIA's (8) Status post hand surgery (9) Stomach ulcer (Yola Castellanos PA-C) Family History Non contributory (Yola Castellanos PA-C) Social History Smoking Status: Never Smoker Alcohol Use: none Marital Status: Housing Status: lives with family Occupation: retired (Yola Castellanos PA-C) Review Of Systems General: The patient denies weight change, night sweats, fever, chills. Head: The patient denies headache and prior head trauma. Cardiovascular: The patient denies chest pain or chest discomfort, dyspnea on exertion, palpitations, PND, orthopnea, edema, spontaneous shortness of breath, syncope and near syncope. Pulmonary: The patient denies cough, wheeze, pleurisy, hemoptysis, sputum, and excessive snoring. Gastrointestinal: The patient denies nausea, vomiting, diarrhea, constipation, bloating, hematemesis, hematochezia, and abdominal pain. Skin: The patient denies diaphoresis and rash. Musculoskeletal: The patient denies joint pain, joint swelling, myalgia, back pain, neck pain and prior injuries. Neurological: The patient denies prior stroke and seizures (Yola Castellanos PA-C) Allergies Coded Allergies: Bee Venom (Verified Allergy, Severe, ANAPHYLAXIS, 02/12/17) Gabapentin (Verified Allergy, Intermediate, DIZZY, UNSTEADY, 02/12/17) Codeine (Verified Allergy, Unknown, ANAPHYLAXIS, 02/12/17) Clindamycin (Verified Adverse Reaction, Intermediate, BLOOD IN STOOL, 02/12) Lisinopril (Verified Adverse Reaction, Intermediate, COUGH, 02/13/17) Medications Reported Home Medications Medications Dose Route/Sig Max Daily Dose Days Date Category Percocet 5MG/325MG (Oxycodone/Acetaminophen) Tab 1-2 Tablets PO Q4H PRN 02/13/17 Rx Augmentin 875-125 mg (Amoxicillin & Pot Clavulanate) 1 Tab Tab 875 Mg PO BID 02/13/17 Rx Coq-10 (Coenzyme Q10 (Ubidecarenone)) 100 Mg Cap 100 Mg PO DAILY 02/12/17 Reported Aspirin Ec (Aspirin) 81 Mg Tab 81 Mg PO DAILY 02/12/17 Reported Epipen (Epinephrine) 0.3 Mg/0.3 Ml Inj 0.3 Mg IM UD 02/12/17 Reported Inderal La (Propranolol HCl) 60 Mg Capcr 60 Mg PO DAILY 02/12/17 Reported Lipitor (Atorvastatin Calcium) 40 Mg Tab 40 Mg PO DAILY 02/12/17 Reported Vitamin B 6 (Pyridoxine Hcl) 50 Mg Tab 0.5 Tab PO BID 01/18/13 Reported Multivitamin (Multiple Vitamin) 1 Tab Tab 1 Tab PO DAILY 01/18/13 Reported [place]-3 (Fish Oil) 1 Ea Cap 1,000 Mg PO DAILY 01/18/13 Reported (Yola Castellanos PA-C) Physical Exam Vital Signs (Last 8hrs): Last 8 Hrs Date Time Temp Pulse Resp B/P (MAP) Pulse Ox O2 Delivery O2 Flow Rate FiO2 02/13/17 11:03 36.8 71 18 111/55 (73) 94 2.0 02/13/17 09:00 Nasal Cannula 2.0 02/13/17 09:00 37.4 78 18 102/57 (72) 94 Nasal Cannula 2.0 78 02/13/17 07:31 36.9 121 17 136/84 (101) 96 Nasal Cannula 2.0 02/13/17 07:00 158 16 94 Nasal Cannula 2.0 02/13/17 06:00 36.5 65 16 111/66 (81) 98 Nasal Cannula 2.0 02/13/17 05:00 36.3 65 16 118/58 (78) 95 Nasal Cannula 2.0 02/13/17 04:03 36.6 69 15 122/63 (82) 95 Nasal Cannula 2.0 02/13/17 03:41 Nasal Cannula 2.0 General Appearance: Alert and Oriented x3. NAD. Head: Normocephalic Atraumatic. Eyes: PERRLA, EOMI, conjunctiva and sclera clear Neck: Supple. No carotid bruits noted. No JVD. No HJD. Respiratory: Breath sounds clear to auscultation bilaterally. No w/r/r. Cardiovascular: Reg rate and rhythm. S1 and S2 noted. No murmurs, rubs, gallops. PMI non displace. Abdomen: dressing dry and intact. Normal bowel sounds, Extremities: No edema, no clubbing or cyanosis. distal pulses 2/4 bilaterally. Neuro: No focal deficits. Psychiatric: Normal affect. (Yola Castellanos PA-C) Data Last 24 Hours Test 02/12/17 20:26 02/12/17 22:00 02/13/17 08:15 02/13/17 08:22 White Blood Count 13.80 K/uL 13.16 K/uL Red Blood Count 4.28 M/uL 4.24 M/uL Hemoglobin 14.4 g/dL 14.3 g/dL Hematocrit 42.8 % 41.7 % Mean Corpuscular Volume 100.0 fL 98.3 fL Mean Corpuscular Hemoglobin 33.6 pg 33.7 pg Mean Corpuscular Hemoglobin Concent 33.6 g/dl 34.3 g/dl Platelet Count 153 K/uL 123 K/uL Mean Platelet Volume 10.7 fL 10.4 fL Neutrophils (%) (Auto) 81.7 % Lymphocytes (%) (Auto) 8.3 % Monocytes (%) (Auto) 8.6 % Eosinophils (%) (Auto) 1.1 % Basophils (%) (Auto) 0.1 % Neutrophils # (Auto) 11.27 K/uL Lymphocytes # (Auto) 1.14 K/uL Monocytes # (Auto) 1.19 K/uL Eosinophils # (Auto) 0.15 K/uL Basophils # (Auto) 0.02 K/uL RDW Standard Deviation 45.8 fL 46.1 fL RDW Coefficient of Variation 12.7 % 12.7 % Immature Granulocyte % (Auto) 0.2 % Immature Granulocyte # (Auto) 0.03 K/uL Sodium Level 137 mmol/L Potassium Level 4.5 mmol/L Chloride Level 104 mmol/L Carbon Dioxide Level 29 mmol/L Anion Gap 4.0 mmol/L Blood Urea Nitrogen 19 mg/dl Creatinine 1.20 mg/dl Est Creatinine Clear Calc Drug Dose 50.3 ml/min Estimated GFR () 64.0 Estimated GFR (Non- 55.2 BUN/Creatinine Ratio 16.2 Random Glucose 98 mg/dl Calcium Level 8.9 mg/dl Total Bilirubin 0.8 mg/dl Aspartate Amino Transf (AST/SGOT) 13 U/L Alanine Aminotransferase (ALT/SGPT) 17 U/L Alkaline Phosphatase 57 U/L Troponin I < 0.015 ng/ml 0.019 ng/ml Total Protein 7.0 gm/dl Albumin 3.6 gm/dl Globulin 3.4 gm/dl Albumin/Globulin Ratio 1.1 Lipase 87 U/L Urine Color YELLOW Urine Appearance CLEAR Urine pH 6.0 Urine Specific [place] 1.016 Urine Protein NEG Urine Glucose (UA) NEG Urine Ketones 1+ Urine Occult Blood NEG Urine Nitrite NEG Urine Bilirubin NEG Urine Urobilinogen NEG Urine Leukocyte Esterase NEG Creatine Kinase MB Ratio Creatine Kinase MB 1.4 ng/ml Test 02/13/17 10:21 Sodium Level 138 mmol/L Potassium Level 4.1 mmol/L Chloride Level 103 mmol/L Carbon Dioxide Level 27 mmol/L Anion Gap 8.0 mmol/L Blood Urea Nitrogen 14 mg/dl Creatinine 1.10 mg/dl Est Creatinine Clear Calc Drug Dose 54.9 ml/min Estimated GFR () 71.1 Estimated GFR (Non- 61.3 BUN/Creatinine Ratio 12.5 Random Glucose 100 mg/dl Calcium Level 8.6 mg/dl Magnesium Level 2.0 mg/dl EKG: ON admission - NSR at 61 with RBBB Unchanged from prior EKG's in EPIC system. Repeat EKG in the post op setting - Afib with RVR at 156 bpm RBBB Telemetry reviewed: NSR with rare PAC since starting telemetry Prior Data: Last echo in 02/2013: The primary indication after review was deemed appropriate and the examination was performed. Normal LV chamber size with moderate concentric LVH. Normal LV systolic function with abnormal septal motion consistent with the post -operative state. Calculated LV ejection Fraction = 56% (bi-plane method of discs). Grade I diastolic dysfunction. No significant valvular pathology. Mild left atrial enlargement. (Yola Castellanos, PA-C) Assessment & Plan 1. Afib with RVR in the post op setting -converted spontaneously to NSR without intervention -episode lasted < 30 minutes according to chart -currently NSR since on telemetry -takes propranolol chronically for tremors. Continue outpatient medications. -continue ASA 81 mg at this time. 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 2. POD 0 Appendectomy 3. CAD s/p CABG x4 in 2012. No anginal symptoms 4. chronic RBBB - unchanged Case discussed with Dr. Pena. Will follow and monitor on telemetry today. (Yola Castellanos, PA-C) Cardiology Attending Physician: Patient seen and examined at the bedside. Asymptomatic episode of atrial fibrillation with rapid ventricular response recorded at 7:40 AM. The episode of atrial fibrillation lasted less than 30 minutes. There were no associated symptoms. Patient carries a history of postoperative atrial fibrillation after bypass surgery. He had been treated with Coumadin for short period of time. There is been no documented recurrence of atrial fibrillation until today. Upon his arrival to the telemetry unit he has been in sinus rhythm with a right bundle branch block. Denies chest pain or unusual shortness of breath. He was admitted last night for urgent appendectomy. is present at the bedside. Patient voices concern regarding changing Inderal to an alternative beta alexander due to history of significant tremors which is followed by neurology. Currently resting comfortably. PE:VSS. Gen: NAD, AAO x3. Heart: Regular rhythm, normal S1-S2, no murmur. Lungs : Clear bilateral, no rales, rhonchi, wheeze. Abdomen, soft, diffusely tender to palpation. No rebound or guarding. Extremities: No edema. A/P: Agree with above PAC history, physical exam, assessment and plan. Brief episode of postoperative paroxysmal atrial fibrillation recorded. Patient spontaneously converted to sinus rhythm. He received his a.m. dose of Inderal. I'm inclined to continue his Inderal at this time with continue telemetry monitoring. Electrolytes appear stable. Repeat TSH is pending. Consider titration of Inderal to 90 mg with recurrent episodes in the short-term. I would not add intravenous anticoagulation at this time. We will continue to follow during hospitalization. Josias Pena DO, FACC (Joshua Pena DO)
[2017-02-13] MEDS ORDERED: NURSING VERBAL MED ORDER ONE (17:00)
[2017-02-14 04:21] VITALS: BP 107/55; PULSE 55; TEMP 36.8; O2SAT 94
[2017-02-14 05:23] VITALS: BP 170/89
[2017-02-14] MEDS ORDERED: NURSING VERBAL MED ORDER ONE (05:45)
[2017-02-14 05:48] LABS: HEMATOCRIT 37.8 % (42-52); MEAN CORPUSCULAR HEMOGLOBIN 33.2 pg (25-34); MEAN CORPUSCULAR HGB CONC 33.6 g/dl (32-36); MEAN PLATELET VOLUME 10.4 fL (7.4-10.4); PLATELET COUNT 113 K/uL (130-400); RED BLOOD COUNT 3.82 M/uL (4.7-6.1); WHITE BLOOD COUNT 10.89 K/uL (4.8-10.8)
[2017-02-14 06:20] LABS: BUN/CREATININE RATIO 11.3 (10-20); CALCIUM 8.3 mg/dl (8.5-10.1); CREATININE 1.1 mg/dl (0.60-1.40)
[2017-02-14 06:31] LABS: THYROID STIMULATING HORMONE 1.95 uIu/ml (0.300-4.500)
[2017-02-14] MEDS: ASPIRIN 81 MG ECTAB PO SCH (07:47)
[2017-02-14] MEDS: MULTIVITAMIN TAB PO SCH (07:49)
[2017-02-14] MEDS: ATORVASTATIN 40 MG TAB PO SCH ×2 (07:49→07:53)
[2017-02-14] MEDS: PYRIDOXINE HCL 50 MG TAB PO SCH (07:50)
--- NOTE | 2017-02-14 08:50 | Surgery Progress Note ---
Surgery Progress Note Date of Service Feb 14, 2017. Subjective Post OP Day: 2 + feeling well feeling well. gilbert diet. Objective Vital Signs: Date Time Temp Pulse Resp B/P (MAP) Pulse Ox O2 Delivery O2 Flow Rate FiO2 02/14/17 04:21 36.8 55 18 107/55 (72) 94 Room Air 02/14/17 04:00 Room Air 02/14/17 00:00 Room Air 02/13/17 23:55 36.8 62 18 100/45 (63) 92 Room Air 02/13/17 20:14 Room Air 02/13/17 19:41 36.7 60 18 113/56 (75) 95 Room Air 02/13/17 16:00 Nasal Cannula 2.0 02/13/17 15:37 37.0 65 20 101/49 (66) 91 Room Air 02/13/17 12:00 Nasal Cannula 2.0 02/13/17 11:03 36.8 71 18 111/55 (73) 94 2.0 02/13/17 09:00 Nasal Cannula 2.0 02/13/17 09:00 37.4 78 18 102/57 (72) 94 Nasal Cannula 2.0 78 General Appearance: no apparent distress Abdomen: non tender, non distended, soft Incision(s): clean, dry, intact Laboratory Results: Results Past 24 Hours Test 02/13/17 10:21 02/14/17 05:33 Range/Units Sodium Level 138 140 136-145 mmol/L Potassium Level 4.1 4.0 3.5-5.1 mmol/L Chloride Level 103 107 98-107 mmol/L Carbon Dioxide Level 27 29 21-32 mmol/L Anion Gap 8.0 4.0 3-11 mmol/L Blood Urea Nitrogen 14 12 7-18 mg/dl Creatinine 1.10 1.10 0.60-1.40 mg/dl Est Creatinine Clear Calc Drug Dose 54.9 54.9 ml/min Estimated GFR () 71.1 71.1 Estimated GFR (Non- 61.3 61.3 BUN/Creatinine Ratio 12.5 11.3 10-20 Random Glucose 100 86 70-99 mg/dl Calcium Level 8.6 8.3 8.5-10.1 mg/dl Magnesium Level 2.0 1.8-2.4 mg/dl White Blood Count 10.89 4.8-10.8 K/uL Red Blood Count 3.82 4.7-6.1 M/uL Hemoglobin 12.7 14.0-18.0 g/dL Hematocrit 37.8 42-52 % Mean Corpuscular Volume 99.0 80-100 fL Mean Corpuscular Hemoglobin 33.2 25-34 pg Mean Corpuscular Hemoglobin Concent 33.6 32-36 g/dl RDW Standard Deviation 46.7 36.4-46.3 fL RDW Coefficient of Variation 12.8 11.5-14.5 % Platelet Count 113 130-400 K/uL Mean Platelet Volume 10.4 7.4-10.4 fL Thyroid Stimulating Hormone (TSH) 1.950 0.300-4.500 uIu/ml Assessment & Plan POD 2 doing well ok from surgery standpoint for d/c. instructions given will d/w medicine if ok for d/c.
[2017-02-14] MEDS ORDERED: OMEGA-3 (PURIFIED FISH OIL) 1 GM CAP PO SCH (09:00)
[2017-02-14] MEDS ORDERED: PROPRANOLOL HCL 60 MG LA CAP PO SCH (09:00)
--- NOTE | 2017-02-14 10:27 | CARDIOLOGY PROGRESS NOTE ---
DATE: 02/14/2017 DATE: 02/14/2017. The patient seen and examined. Chart, medications, telemetry reviewed. SUBJECTIVE: The patient feels well this morning, sitting out in the chair, has had no further complaints. Notes no tachypalpitations, dizziness or lightheadedness. Notes no chest discomfort. OBJECTIVE: Telemetry reveals sinus bradycardia with occasional ventricular ectopic beats. No further atrial arrhythmias, no further atrial fibrillation. VITAL SIGNS: Heart rate is 55, blood pressure is 108/68. HEAD, EYES, EARS, NOSE, AND THROAT: Normocephalic, atraumatic. Nares without discharge. Throat was clear. NECK: Supple without thyromegaly, lymphadenopathy, JVD or bruit. LUNGS: Clear to auscultation. CARDIOVASCULAR EXAMINATION: Regular with normal S1, S2. There is no murmur or rub. EXTREMITIES: Without cyanosis or clubbing. There is no edema. IMPRESSION: The patient is an 82-year-old male status post surgical appendectomy in the setting of acute appendicitis complicated by transient atrial fibrillation postoperatively. The patient spontaneously converted to sinus rhythm. Discussed this in detail. Noted this would be appropriate with inciting cause. Would recommend continuing usual prehospital medications including Inderal. 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 Currently would not anticoagulate chronically unless further signs or symptoms of recurrent atrial fibrillation are present. The patient is stable for discharge today.
[2017-02-14 10:38] VITALS: BP 133/79; PULSE 60; TEMP 36.7; O2SAT 95
[2017-02-14 11:19] VITALS: BP 133/79; PULSE 60; TEMP 36.7; O2SAT 95
[2017-02-14 12:00] VITALS: BP 118/67; PULSE 57; TEMP 36.6; O2SAT 97
[2017-02-14] MEDS ORDERED: METOPROLOL TARTRATE 25 MG TAB PO SCH (21:00)
--- NOTE | 2017-02-18 14:03 | Discharge Summary ---
Discharge Summary Dates Admission Date / Time: Feb 13, 2017 at 02:23 Discharge Date: Feb 14, 2017 Dispostion / Condition Discharge Disposition: Home Condition at Discharge: Good Principal Diagnosis (1) Acute appendicitis Problem List (1) Atrial fibrillation (2) Acute appendicitis Consultations / Procedures Consultations: Hospitalist and cardiology Procedures: Laparoscopic Appendectomy Pending Studies / Follow-Up None Medication Reconciliation New Medications: Amoxicillin & Pot Clavulanate (Augmentin 875-125 mg) 1 Tab Tab 875 MG PO BID, #14 TAB Oxycodone/Acetaminophen 5MG/325MG (Percocet 5MG/325MG) Tab 1-2 TABLETS PO Q4H PRN for Pain, #30 TAB Continued Medications: Aspirin (Aspirin Ec) 81 Mg Tab 81 MG PO DAILY Atorvastatin (Lipitor) 40 Mg Tab 40 MG PO DAILY, TAB Coenzyme Q10 (Ubidecarenone) (Coq-10) 100 Mg Cap 100 MG PO DAILY Epinephrine (Epipen) 0.3 Mg/0.3 Ml Inj 0.3 MG IM UD, BOX Fish Oil ([place]-3) 1 Ea Cap 1000 MG PO DAILY, CAP Multiple Vitamin (Multivitamin) 1 Tab Tab 1 TAB PO DAILY, TAB Propranolol La (Inderal La) 60 Mg Capcr 60 MG PO DAILY, CAP Pyridoxine Hcl (Vitamin B 6) 50 Mg Tab 0.5 TAB PO BID Admission HPI Per the Admitting provider: The patient is a 82 year old male being seen at the request of Dr. Davila for acute appendicitis. He presents to the ER complaining of abdominal pain of 1 days duration. Generalized throughout his abdomen, constant, achy, 5/10 in severity, worse with movement, better if he lays still with his legs bent. Fever to 101 earlier today. No nausea or vomiting. No change in bowel habits. No similar symptoms in the past. No localization or radiation to the right side. No prior colonoscopy but no family history of colon cancer. Hospital Course (1) Acute appendicitis Patient was taken to operating room and underwent laparoscopic appendectomy. He tolerated procedure well and was transferred to PACU in stable condition. He developed rapid a-fib in post op and hospitalist was consulted. He was transferred to telemetry for further evaluation and a cardiology consultation was ordered. He had a history of a-fib after his CABG in which he was placed on Coumadin for a little while. He did not have any symptoms during this episode of afib and lasted for less than 30 minutes. In Telemetry he converted back to normal sinus rhythm with heart rate in the 80's. Overall did well post operatively. Post operatively he was placed on clear liquids, oral narcotic pain medication, IV fluids, IV antibiotics (cefoxitin), IV Morphine as needed. His diet was advanced as tolerated. POD # 1 he was doing well. He was stable from surgical standpoint to be discharged home on POD # 2. Cardiology recommended to continue Inderal, keep follow-up with Dr. Josue, and no anticoagulation unless he had another episode of a-fib. He was stable and discharged home on POD #2. (2) Atrial fibrillation Please refer above Discharge Instructions as given Copies To Primary Care Provider: Deon Spann MD. Problem Qualifiers (1) Atrial fibrillation: Atrial fibrillation type: paroxysmal Qualified Codes: I48.0 - Paroxysmal atrial fibrillation
== END 2017-02-14 12:50 | disposition home or self-care (01) ==
LOC: C.EDB 19:59 → C.MSN 02-13 02:23 → ENRESERV 02-13 02:39 → C.2E 02-13 08:51 → CMPBEDREQ 02-13 08:56
PROVIDERS: ADMIT Surgery; ATTEND Surgery
DX: K35.80 Unspecified acute appendicitis (principal); I48.0 Paroxysmal atrial fibrillation; I25.10 Atherosclerotic heart disease of native coronary artery without angina pectoris; Z95.1 Presence of aortocoronary bypass graft; Z86.73 Personal history of transient ischemic attack (TIA), and cerebral infarction without residual deficits